=== PATIENT | female | born 1960 | race Caucasian/White ===

== ENCOUNTER 2024-08-09 08:06 | Inpatient (IN) | payer OTHER ==
[~2024-08-09] VITALS: Ht 162.6 cm; Wt 73.5 kg
[2024-08-09 09:03] LABS: HEMATOCRIT 40.8 % (36.0-45.00); HEMOGLOBIN 13.6 g/dL (12.0-15.00); MEAN CELL VOLUME 88.8 fL (80.00-100.00); MEAN CORPUSCULAR HEMOGLOBIN 29.7 pg (27.00-32.0); MEAN CORPUSCULAR HGB CONC 33.5 g/dl (32.0-36.0); PLATELET COUNT 259 K/uL (150-450); RED BLOOD COUNT 4.59 M/uL (4.00-6.00); RED CELL DISTRIBUTION WIDTH 13.4 % (11.5-14.5)
[2024-08-09] MEDS ORDERED: LEVO-T88 MCG PO (09:03)
[2024-08-09] MEDS ORDERED: COZAAR25 MG PO (09:04)
[2024-08-09] MEDS ORDERED: GRALISE600 MG PO (09:04)
[2024-08-09] MEDS ORDERED: ROSUVASTATIN CA20 MG PO (09:04)
[2024-08-09 09:06] LABS: URINE APPEARANCE Clear; URINE BILIRRUBIN Negative (NEGATIVE); URINE BLOOD Negative; URINE COLOR Yellow; URINE GLUCOSE Negative (NEGATIVE); URINE KETONE Negative (NEGATIVE); URINE LEUKOCYTE Negative; URINE NITRATE Negative; URINE PROTEIN Negative (NEGATIVE)
[2024-08-09 09:10] LABS: URINE BACTERIA 50.3 uL (0.0-1933); URINE EPITHELIAL CELLS 1.6 uL (0.0-38.8); URINE RBC 2.9 uL (0.0-20.8); URINE WBC 2.6 uL (0.0-23.2)
[2024-08-09 09:16] VITALS: BP 106/73
[2024-08-09 09:27] LABS: INR 0.99; PARTIAL THROMBOPLASTIN TIME 27.9 SECONDS (22.0-34.0); PROTHROMBIN TIME 10.8 SECONDS (9.0-11.5)
[2024-08-09 10:00] LABS: BILIRUBIN TOTAL 0.61 mg/dL (0.3-1.2); CALCIUM 9.9 mg/dL (8.5-10.1); CREATININE SERUM 0.5 mg/dL (0.55-1.02); GFR 125.43; GLOBULINA 2.9 G/DL (2.4-3.5); POTASSIUM 4.52 mEq/L (3.5-5.1); TOTAL PROTEIN 6.9 gm/dL (6.4-8.2)
[2024-08-09 11:31] LABS: RH POSITIVE
[2024-08-14] MEDS ORDERED: CEFOXITIN SODIUM 2,000 MG VIAL IV ONE (07:45)
[2024-08-14] MEDS ORDERED: TRANEXAMIC ACID 100MG/1ML (1000MG) AMPUL IV ONE ×2 (07:45)
[2024-08-14] MEDS ORDERED: LIDOCAINE HCL 1%/EPINEPHRINE 20ML VIAL IJ ONE (08:00)
[2024-08-14] MEDS ORDERED: KETOROLAC TROMETHAMINE 60 MG VIAL IM ONE (08:00)
[2024-08-14] MEDS ORDERED: BUPIVACAINE HCL/PF 0.25% 50 ML VIAL IJ ONE (08:00)
[2024-08-14] MEDS ORDERED: MORPHINE SULFATE 4 MG/ML VIAL IV ONE (08:00)
[2024-08-14] MEDS ORDERED: LOSARTAN POTASS25 MG (08:59)
[2024-08-14] MEDS ORDERED: MOUNJARO10 MG/0.5 (08:59)
[2024-08-14] MEDS ORDERED: GABAPENTIN300 M2 (08:59)
[2024-08-14] MEDS ORDERED: LEVOXYL88 MCG (08:59)
[2024-08-14] MEDS ORDERED: GABAPENTIN800 M1 (08:59)
[2024-08-14] MEDS ORDERED: TRUE METRIX GL1 EACH (08:59)
[2024-08-14] MEDS ORDERED: HYDROCHLOROTH12.5 M2 (08:59)
[2024-08-14] MEDS ORDERED: ROSUVASTATIN CA40 MG (09:00)
[2024-08-14] MEDS ORDERED: SODIUM CHLORIDE 0.45 % 1,000 ML IV SCH (10:30)
[2024-08-14] MEDS ORDERED: ONDANSETRON HCL 2 MG/ML VIAL IV PRN (10:30)
[2024-08-14] MEDS ORDERED: MORPHINE SULFATE 2 MG/ML CARTRIDGE IV ONE (10:30)
[2024-08-14] MEDS ORDERED: MORPHINE SULFATE 4 MG/ML CARTRIDGE IV PRN (10:30)
[2024-08-14 11:56] LABS: HEMATOCRIT 36.9 % (36.0-45.00); HEMOGLOBIN 12.4 g/dL (12.0-15.00); RED BLOOD COUNT 4.22 M/uL (4.00-6.00)
[2024-08-14] MEDS ORDERED: CEFAZOLIN SODIUM 1,000 MG VIAL IV SCH (12:00)
[2024-08-14 12:20] VITALS: BP 130/82; O2SAT 100
[2024-08-14] MEDS ORDERED: DEXTROSE 50 % IN WATER 0.5 G/ML VIAL IV STA (12:45)
[2024-08-14] MEDS ORDERED: DEXTROSE 50 % IN WATER 0.5 G/ML DISP.SYRIN IV STA (12:47)
[2024-08-14 18:21] VITALS: BP 138/85; O2SAT 100
[2024-08-14] MEDS ORDERED: GENTAMICIN SULFATE 40 MG/ML VIAL IV SCH (21:00)
[2024-08-15 00:53] VITALS: BP 109/73; O2SAT 100
[2024-08-15] MEDS ORDERED: LEVOTHYROXINE SODIUM 88 MCG TABLET PO SCH (06:00)
[2024-08-15 06:28] LABS: HEMATOCRIT 32.5 % (36.0-45.00); HEMOGLOBIN 11.1 g/dL (12.0-15.00); MEAN CELL VOLUME 88.1 fL (80.00-100.00); MEAN CORPUSCULAR HEMOGLOBIN 30.2 pg (27.00-32.0); MEAN CORPUSCULAR HGB CONC 34.2 g/dl (32.0-36.0); PLATELET COUNT 186 K/uL (150-450); RED BLOOD COUNT 3.68 M/uL (4.00-6.00); RED CELL DISTRIBUTION WIDTH 13.4 % (11.5-14.5)
[2024-08-15 08:00] VITALS: BP 123/65; O2SAT 99
[2024-08-15] MEDS ORDERED: ACETAMINOPHEN WITH CODEINE 1 UDTAB TABLET PO PRN (08:30)
[2024-08-15] MEDS ORDERED: SENNA/DOCUSATE SODIUM 1 TAB TABLET PO SCH (09:00)
[2024-08-15] MEDS ORDERED: BACITRACIN 28.35 GM OINT.TUBE TOP SCH (09:00)
[2024-08-15] MEDS ORDERED: CELECOXIB 200 MG CAPSULE PO SCH (09:00)
[2024-08-15] MEDS ORDERED: IRON FUM,PS/FOLIC/BCOMP,C NO.9 1 CAP CAPSULE PO SCH (09:00)
[2024-08-15] MEDS ORDERED: LOSARTAN POTASSIUM 25 MG TABLET PO SCH (09:00)
[2024-08-15] MEDS ORDERED: RIVAROXABAN 10 MG TAB PO SCH (09:00)
[2024-08-15 16:40] VITALS: BP 119/80; O2SAT 97
[2024-08-16 01:05] VITALS: BP 109/67; O2SAT 100
[2024-08-16 07:21] LABS: HEMATOCRIT 31.3 % (36.0-45.00); MEAN CELL VOLUME 87.3 fL (80.00-100.00); MEAN CORPUSCULAR HGB CONC 34.2 g/dl (32.0-36.0); PLATELET COUNT 188 K/uL (150-450); RED BLOOD COUNT 3.59 M/uL (4.00-6.00)
[2024-08-16 07:39] LABS: HEMOGLOBIN 10.7 g/dL (12.0-15.00); MEAN CORPUSCULAR HEMOGLOBIN 29.8 pg (27.00-32.0)
[2024-08-16] MEDS ORDERED: INTEGRA PLUS C1 EACH PO (07:47)
[2024-08-16] MEDS ORDERED: Septra Ds Tablet PO (07:47)
[2024-08-16] MEDS ORDERED: XARELTO10 MG PO (07:47)
[2024-08-16] MEDS ORDERED: ACETAMINOPHEN-1 EAC2 PO (07:48)
[2024-08-16 08:00] VITALS: BP 140/82; O2SAT 98
[2024-08-16] MEDS ORDERED: SULFAMETHOXAZOLE/TRIMETHOPRIM DS 1 TAB PO SCH (09:00)
== END 2024-08-16 18:16 | DRG 470 ==
LOC: SURH 08-14 05:12 → O/R 08-14 05:12 → SURH 08-14 10:38
PROVIDERS: ADMIT Orthopaedic Surgery Sports Medicine; ATTEND Orthopaedic Surgery Sports Medicine
PROC: 0SPC04Z Removal of Internal Fixation Device from Right Knee Joint, Open Approach (ICD-10-PCS; 2024-08-14)
PROC: 0SRC0J9 Replacement of Right Knee Joint with Synthetic Substitute, Cemented, Open Approach (ICD-10-PCS; principal; 2024-08-14 14:00)
DX: M17.11 Unilateral primary osteoarthritis, right knee (principal); I10 Essential (primary) hypertension; E03.9 Hypothyroidism, unspecified